=== PATIENT | female | born 1980 | race Caucasian/White ===

== ENCOUNTER 2017-11-04 20:14 | Emergency (ER) | payer OTHER ==
[2017-11-04 20:23] VITALS: BP 118/78
--- NOTE | 2017-11-04 21:12 | ED GENERAL ADULT ---
History of Present Illness General Chief Complaint: Suture Removal/Wound Recheck Stated Complaint: "STITCHES REMOVED FROM FOREHEAD" Source: patient Exam Limitations: no limitations Vital Signs & Intake/Output Vital Signs & Intake/Output Vital Signs Date Time Temp Pulse Resp B/P B/P Pulse O2 O2 Flow FiO2 Mean Ox Delivery Rate 11/04 2106 Room Air 11/04 2022 96.5 77 18 118/78 98 Room Air Allergies Coded Allergies: No Known Allergies (10/30/17) Reconcile Medications No Known Home Medications Triage Note: PT TO TRIAGE FOR SUTURE REMOVAL. PT HAS 5 SUTURES TO FOREHEAD PLACED HERE THURSDAY NIGHT. AFEBRILE, NO S/SX INFECTION NOTED. Triage Nurses Notes Reviewed? yes Onset: Abrupt Duration: day(s): Timing: constant : No Patient currently breastfeeds: No HPI: 37 her old female with a history of anemia presenting for suture removal. Patient had 5 sutures placed to her forehead 5 days ago status post striking her head on the ground. Denies fevers, nausea, vomiting, purulent drainage. (Kristin Johnson) Past History Travel History Traveled to [place] past 21 day No Medical History Any Pertinent Medical History? see below for history Neurological: NONE EENT: NONE Cardiovascular: NONE Respiratory: NONE Gastrointestinal: NONE Hepatic: NONE Renal: NONE Musculoskeletal: NONE Psychiatric: NONE Endocrine: NONE Blood Disorders: anemia Cancer(s): NONE Surgical History Surgical History: non-contributory Psychosocial History What is your primary language Vincentian Tobacco Use: Never used ETOH Use: denies use Family History Hx Contributory? No (Kristin Johnson) Review of Systems Review of Systems Constitutional: Reports: no symptoms. EENTM: Reports: no symptoms. Respiratory: Reports: no symptoms. Cardiovascular: Reports: no symptoms. GI: Reports: no symptoms. Genitourinary: Reports: no symptoms. Musculoskeletal: Reports: no symptoms. Skin: Reports: see HPI. Neurological/Psychological: Reports: no symptoms. Hematologic/Endocrine: Reports: no symptoms. Immunologic/Allergic: Reports: no symptoms. All Other Systems: Reviewed and Negative (Kristin Johnson) Physical Exam Physical Exam General Appearance: well developed/nourished, no apparent distress, alert, awake Head: irregular shaped wound to left forehead with [address], appears to be healing well with good scab formation, no surrounding erythema or purulent drainage Eyes: Bilateral: normal appearance. Neck: normal inspection Respiratory: normal breath sounds, lungs clear Cardiovascular: regular rate/rhythm Gastrointestinal: soft, non-tender Back: normal inspection Extremities: normal inspection Neurologic/Psych: awake, alert, oriented x 3, normal gait, normal mood/affect Skin: normal color, warm/dry Core Measures ACS in differential dx? No CVA/TIA Diagnosis: No Sepsis Present: No Sepsis Focused Exam Completed? No (Kristin Johnson) Progress Differential Diagnoses I considered the following diagnoses in my evaluation of the patient: [Suture removal, low concern for wound infection] Plan of Care: 5 sutures removed from wound and wound remained intact. Counseled on continued wound care and strict return precautions. Initial ED EKG: none (Kristin Johnson) Departure Departure Disposition: HOME OR SELF CARE Condition: Stable Clinical Impression Primary Impression: Visit for suture removal Referrals: Patient Has No Primary Care Dr (PCP/Family) Additional Instructions: Continue keeping the wound clean and dry. Apply sunblock daily to help minimize scar formation. Follow-up with your primary care provider for reevaluation. Return to the emergency department for any normal worsening symptoms. Departure Forms: Customer Survey General Discharge Information Prescriptions: Current Visit Scripts No Known Home Medications (Kristin Johnson) PA/TUBER MACHINE OPERATOR HELPER Co-Sign Statement Statement: ED Attending supervision documentation- I saw and evaluated the patient. I have also reviewed all the pertinent lab results and diagnostic results. I agree with the findings and the plan of care as documented in the PA's/TUBER MACHINE OPERATOR HELPER's documentation. x I have reviewed the ED Record and agree with the PA's/TUBER MACHINE OPERATOR HELPER's documentation. [] Additions or exceptions (if any) to the PAs/TUBER MACHINE OPERATOR HELPER's note and plan are summarized below: [] (Tatiana STEVENSON,Brian) Critical Care Note Critical Care Note Critical Care Time: non-applicable (Kristin Johnson)
== END 2017-11-04 21:17 ==
LOC: ERH 20:14
DX: Z48.02 Encounter for removal of sutures (principal)